=== PATIENT | female | born 1990 | race African-American/Black ===

== ENCOUNTER 2017-02-02 17:57 | Observation (INO) | payer MEDICAID ==
[~2017-02-02] VITALS: Ht 157.5 cm; Wt 103.0 kg
== END 2017-02-02 22:40 | disposition home or self-care (01) ==
LOC: L&D 17:57
PROVIDERS: ADMIT Obstetrics & Gynecology; ATTEND Obstetrics & Gynecology
DX: O26.893 Other specified pregnancy related conditions, third trimester (principal); R10.9 Unspecified abdominal pain; Z3A.38 38 weeks gestation of pregnancy
CPT/HCPCS: 76815; 76818; G0378

== ENCOUNTER 2022-08-21 23:58 | Emergency (ER) | payer MEDICAID, OTHER ==
[~2022-08-21] VITALS: Ht 162.6 cm; Wt 78.0 kg
[2022-08-22 00:10] VITALS: BP 125/74
[2022-08-22] MEDS ORDERED: ACETAMINOPHEN 325MG TABLET PO ONE (00:15)
[2022-08-22 00:55] LABS: HCG SCREEN NEGATIVE
[2022-08-22] MEDS ORDERED: ACET-2708 MT (02:00)
== END 2022-08-22 02:07 | disposition home or self-care (01) ==
LOC: ER 08-22 00:13
DX: M25.522 Pain in left elbow (principal); M25.562 Pain in left knee; W18.30XA Fall on same level, unspecified, initial encounter; Y93.89 Activity, other specified; Y92.89 Other specified places as the place of occurrence of the external cause; Y99.8 Other external cause status
CPT/HCPCS: 73080; 73562; 84703; 99283

== ENCOUNTER 2022-08-25 13:47 | Emergency (ER) | payer MEDICAID, OTHER ==
[~2022-08-25] VITALS: Ht 167.6 cm; Wt 75.0 kg
[~2022-08-25 13:47] MED LIST: ACET-2708 MT
[2022-08-25 14:57] VITALS: BP 140/67
[2022-08-25] MEDS ORDERED: KETOROLAC 60MG/2ML VIAL IM STA (14:57)
[2022-08-25] MEDS ORDERED: HYDR-4001 PO (16:27)
[2022-08-25] MEDS ORDERED: NAPR-681 PO (16:27)
[2022-08-25] MEDS ORDERED: POLY15DR31 EACHEYE (16:30)
== END 2022-08-25 16:58 | disposition home or self-care (01) ==
LOC: ER 14:17
DX: S52.042A Displaced fracture of coronoid process of left ulna, initial encounter for closed fracture (principal); H11.32 Conjunctival hemorrhage, left eye; I10 Essential (primary) hypertension; J45.909 Unspecified asthma, uncomplicated; X50.1XXA Overexertion from prolonged static or awkward postures, initial encounter; Y93.89 Activity, other specified; Y92.89 Other specified places as the place of occurrence of the external cause; Y99.8 Other external cause status
CPT/HCPCS: 29105; 73030; 73080; 96372; 99284; J1885; A4565